=== PATIENT | female | born 1960 ===

== ENCOUNTER 2019-11-06 09:48 | Emergency (ER) | payer SELFPAY ==
[~2019-11-06] VITALS: Ht 149.9 cm; Wt 49.1 kg
--- NOTE | 2019-11-06 10:11 | NUR ---
PROFESSOR OF MEDICINE: NOT IN LOBBY X 1
--- NOTE | 2019-11-06 10:15 | NUR ---
TURN LASTER: PT AMBULATORY TO ROOM FROM LOBBY
--- NOTE | 2019-11-06 11:02 | NUR ---
pt presents to ED with c/o right upper abd pain and nausea constantly x 2 weeks, pt states she had similar pain 3 years ago and states pain was due to liver inflammation. pt attached to bp and spo2 monitors, call light in reach. [employer] at bedside for initial assessment, interpretive services in use as pt is serbian speaking only.
[2019-11-06] MEDS ORDERED: [UNRECOGNIZED DRUG - OTHER] PO (11:11)
--- NOTE | 2019-11-06 11:12 | NUR ---
[employer] court interpreter [phone] (Zaina) in use for RN and MD assessment, clinical screen and med rec.
[2019-11-06] MEDS ORDERED: MORPHINE SULFATE 4 MG/ML, 1ML ONE (11:18)
[2019-11-06] MEDS ORDERED: ONDANSETRON 2MG/ML, 2ML ONE (11:18)
[2019-11-06 11:28] LABS: BASOPHILS # (AUTO) 0.04 x10^3/uL (0-0.1); BASOPHILS % (AUTO) 1 % (0-1); EOSINOPHILS # (AUTO) 0.25 x10^3/uL (0-0.4); EOSINOPHILS % (AUTO) 3 % (1-7); LYMPHOCYTES # (AUTO) 2.15 x10^3/uL (1-3.4); LYMPHOCYTES % (AUTO) 28 % (22-44); MD NO; MEAN CORPUSCULAR HEMOGLOBIN 31.8 pg (27.0-34.8); MEAN CORPUSCULAR HGB CONC 33.7 g/dL (32.4-35.8); MEAN CORPUSCULAR VOLUME 94.3 fL (80-100); MEAN PLATELET VOLUME 8.5 fL (7.4-10.4); MONOCYTES # (AUTO) 0.59 x10^3/uL (0.2-0.8); MONOCYTES % (AUTO) 8 % (2-9); NEUTROPHILS # (AUTO) 4.61 x10^3/uL (1.8-6.8); NEUTROPHILS % (AUTO) 60 % (42-75); PLATELET COUNT 235 x10^3/uL (130-400); RED BLOOD COUNT 4.91 x10^6/uL (3.82-5.3)
[2019-11-06] MEDS ORDERED: SODIUM CHLORIDE FLUSH 10ML SYR IVF ONE (11:30)
[2019-11-06] MEDS ORDERED: ONDANSETRON 2MG/ML, 2ML IVPush ONE (11:30)
[2019-11-06] MEDS ORDERED: MORPHINE SULFATE 4 MG/ML, 1ML IVPush PRN (11:30)
--- NOTE | 2019-11-06 11:33 | NUR ---
BREAK RN: PIV EST AND PT MED NOTED. WARM BLANKET PROVIDED, CALL LIGHT W/I REACH, VSS
[2019-11-06 11:40] LABS: ALANINE AMINOTRANSFERASE 50 U/L (12-78); ALBUMIN 3.7 g/dL (3.4-5.0); ANION GAP 4 mmol/L (5-15); CALCIUM 9.1 mg/dL (8.5-10.1); CHLORIDE 107 mmol/L (98-107)
[2019-11-06 11:43] LABS: ALKALINE PHOSPHATASE 135 U/L (45-117); BILIRUBIN,TOTAL 0.3 mg/dL (0.2-1.0); CREATININE 0.71 mg/dL (0.55-1.02); TOTAL PROTEIN 7.8 g/dL (6.4-8.2)
--- NOTE | 2019-11-06 12:06 | NUR ---
US IN PROGRESS. PT MEDICATED BY YUMIKO PEREA. PT DENIES PAIN AT THIS TIME.
[2019-11-06 13:43] VITALS: BP 112/56
--- NOTE | 2019-11-06 13:44 | NUR ---
PT GIVEN DC INSTRUCTIONS AND SCRIPT, EDUCATED BY [employer] REGARDING DC RX, [employer] TECHNICIAN ANATOMIC PATHOLOGY UTILIZED FOR DC EDUCATION. PIV DC'D WITH TIP INTACT. PT A&O, RESPS EVEN AND UNLABORED, PT AMB WITH STEADY GAIT TO DC. PT EDUCATED NOT TO DRIVE D/T MED GIVEN, PT STATES [facility]HA IS PICKING HER UP. NO COMPLAINT AT DC.
== END 2019-11-06 13:46 | disposition home or self-care (01) ==
LOC: ED 10:48
DX: R10.11 Right upper quadrant pain (principal); R11.2 Nausea with vomiting, unspecified; R19.7 Diarrhea, unspecified; F17.200 Nicotine dependence, unspecified, uncomplicated
CPT/HCPCS: 36415; 76700; 80053; 83690; 85025; 93005; 96374; 96375; 99285; J2270; J2405